=== PATIENT | male | born 1950 | race Caucasian/White ===

== ENCOUNTER → 2018-07-31 | Outpatient (CLI) | payer MEDICARE, OTHER ==
[2016-11-14 11:10] VITALS: BMI 24.9
[~2018-07-31] MED LIST: AMITRIPTYLINE PO; AZIT500T44 PO; CEFU500T10 PO; DEXL60CA6 PO; ESC10 PO; FENT1PAT12 TD; GEM600 PO; GLUC-232 PO; HCTZ25 PO; HYDR40TA PO; LAN15 PO; LOR5 PO; LOR5/325 PO; NALO25TA PO; OXYC-373 PO; PROL80 PO; PROP160C20 PO; PROTONIX; RAN150 PO; RIVA15TA PO; RIVA20TA PO; TAMS0.4C25 PO; TRAZ-133 PO; VENL75CA4 PO; metformin PO
--- NOTE | 2018-07-31 14:46 | RADIOLOGY IMAGING REPORT ---
[place] [facility] [place] NAME: Blaine Hernandes : 1950 MR: [id number] V: [id number] EXAM DATE: ORDERING PHYSICIAN: LUCAS SANCHEZ TECHNOLOGIST: Location: [facility] Patient: Blaine Hernandes : 1950 Visit/Account:[id number] Date of Sevice: 07/31/2018 EXAMINATION: Lumbar spine radiographs 3 views HISTORY: Low back pain. Fall on 07/19/2018. History of multiple back surgeries including lumbar fus ion. COMPARISON: CT of the lumbar spine from 09/18/2016. FINDINGS: AP and lateral views of the lumbar spine and a lateral view of the lumbosacral junction are obtained. Bones: There are 5 nonrib-bearing lumbar type vertebral bodies. Vertebral body heights are maintaine d. Disc spaces: Mild anterior bony spurring at a few levels. Posterior elements: There is facet hypertrophy throughout the lumbar spine. Alignment: Minimal right lateral curvature of the lumbar spine. No focal listhesis. Hardware: Posterior interbody fusion hardware at L2-3 and L5-S1 is intact and well-positioned, withou t evidence of loosening or complication. There are wires related to a spinal device partly visualize d. Soft tissues: Negative. IMPRESSION: 1. No evidence of acute fracture of the lumbar spine. 2. Multilevel facet arthropathy. 3. Posterior lumbar interbody fusion at L2-3 and L5-S1, without evidence of hardware complication. Report Dictated By: Katherin Lynn MD at 07/31/2018 2:38 PM Report E-Signed By: Katherin Lynn MD at 07/31/2018 2:41 PM WSN:[email or web address]
== END ==
LOC: RAD 09:31
PROVIDERS: ATTEND Nurse Practitioner Family
DX: M12.9 Arthropathy, unspecified (principal); M54.5 Low back pain
CPT/HCPCS: 72100

== ENCOUNTER → 2018-11-05 | Outpatient (CLI) | payer MEDICARE, OTHER ==
[2016-11-14 11:10] VITALS: BMI 24.9
--- NOTE | 2018-11-05 11:08 | RADIOLOGY IMAGING REPORT ---
FACILITY: [facility] - [place] PATIENT NAME: Blaine Hernandes : 1950 MR: [id number] V: [id number] EXAM DATE: ORDERING PHYSICIAN: LUCAS SANCHEZ TECHNOLOGIST: [place] [facility] [place]: Blaine Hernandes : 1950 Visit/Account:[id number] Date of Sevice: 11/05/2018 Technique: CHEST PA LAT HISTORY: Hypoxia Comparison studies: February 15, 2017 FINDINGS: No acute airspace consolidation. No pleural effusion. There is pulmonary hyperexpansion a s well as mild central peribronchial thickening. Cardiac silhouette is unchanged. Spinal stimulator leads are again noted. IMPRESSION: 1. No acute cardiac pulmonary process. 2. Pulmonary hyperexpansion. Report Dictated By: Jesse Bourgeois DO at 11/05/2018 11:02 AM Report E-Signed By: Jesse Bourgeois DO at 11/05/2018 11:04 AM WSN:[email or web address]
== END ==
LOC: RAD 10:24
PROVIDERS: ATTEND Nurse Practitioner Family
DX: R91.8 Other nonspecific abnormal finding of lung field (principal)
CPT/HCPCS: 71046

== ENCOUNTER 2018-12-22 06:48 | Outpatient (RCR) | payer MEDICARE, OTHER ==
[2016-11-14 11:10] VITALS: BMI 24.9
--- NOTE | 2018-12-22 12:15 | RADIOLOGY IMAGING REPORT ---
[place] [facility] [place]: Blaine Hernandes : 1950 MR: [id number] V: [id number] EXAM DATE: ORDERING PHYSICIAN: SOUMYA BENNETT TECHNOLOGIST: Location: [facility] Patient: Blaine Hernandes : 1950 Visit/Account:[id number] Date of Sevice: 12/22/2018 MR SPINE THORACIC W/O CON INDICATION: Back pain, history of AVM COMPARISON: Lumbar spine CT September 18, 2016 TECHNIQUE: Noncontrast multiplane MR imaging performed through the thoracic spine. FINDINGS: The inferior most aspect of the T12 vertebral body was not imaged on this exam. The T12-L1 disc space s not imaged on this exam. Spinal cord stimulator lead/leads in the posterior canal. Lead tips/tips have highest position at the T7-8 disc space level. Normal static alignment. Mild chronic T3 and T11 wedge compression deformities. Otherwise normal vert ebral body heights. Small benign hemangioma in the T11 vertebral body. Mild high signal in the inferior T9 endplate may r epresent mild degenerative edema, an endplate Schmorl's node or an atypical benign hemangioma. Normal cord signal. No apparent vascular malformation. Minimal T10-11 disc protrusion. No canal narrowing. T3-4 ligamentum flavum thickening. Multilevel anterior endplate spurring with preservation of disc space heights in keeping with idiopat hic skeletal hyperostosis. Mild T9-10 disc space degeneration. The visible extraspinal structures are normal. Mild bilateral T1-2 foraminal narrowing. Mild right T2-3 foraminal narrowing. Mild to moderate bilate ral T9-10 foraminal narrowing. Mild left T10-11 foraminal narrowing. The T12-L1 foramen are incomplet isai imaged on this exam. IMPRESSION: 1. Mild chronic T3 and T11 wedge compression deformities. 2. Mild T9-10 disc space degeneration. 3. Spinal stimulator lead/leads in the posterior canal as described above. 4. No canal narrowing. 5. Multilevel foraminal narrowing, see comments above. 6. The T12-L1 disc space is not imaged on this exam. The T12-L1 foramen are incompletely imaged on th is exam. Report Dictated By: Sage Pride MD at 12/22/2018 12:00 PM Report E-Signed By: Sage Pride MD at 12/22/2018 12:09 PM WSN:[email or web address]
--- NOTE | 2018-12-23 16:23 | RADIOLOGY IMAGING REPORT ---
FACILITY: [facility] - [place] PATIENT NAME: Blaine Hernandes : 1950 MR: [id number] V: [id number] EXAM DATE: ORDERING PHYSICIAN: SOUMYA BENNETT TECHNOLOGIST: Location: [facility] [place] Patient: Blaine Hernandes : 1950 Visit/Account:[id number] Date of Sevice: 12/23/2018 The patient could not have the lumbar spine MRI because of the implanted stimulator. Report Dictated By: Saqib Fernando MD at 12/23/2018 4:17 PM Report E-Signed By: Saqib Fernando MD at 12/23/2018 4:19 PM WSN:[id number]
== END 2018-12-22 18:00 | disposition home or self-care (01) ==
LOC: MRI 06:48 → EDSTATUS 12-23 06:48
PROVIDERS: ATTEND Pain Medicine Pain Medicine
DX: M54.14 Radiculopathy, thoracic region (principal)
CPT/HCPCS: 72146

== ENCOUNTER 2019-03-01 00:08 | Day surgery (SDC) | payer MEDICARE, OTHER ==
[2016-11-14 11:10] VITALS: Ht 182.9 cm; Wt 84.4 kg
[~2019-03-01] VITALS: Ht 182.9 cm; Wt 84.4 kg
[~2019-03-01 00:08] MED LIST changes: +GABA-549 PO; +HYDR-385 PO; +KRIL1CAP19 PO; +OXYC9CAP PO
[2019-03-01] MEDS ORDERED: PROPRANOLOL HCL LA 80 MG CAPCR PO SCH (09:00)
[2019-03-01 09:05] VITALS: BP 131/86
--- NOTE | 2019-03-01 09:17 | EKG ---
FACILITY: [facility] - [place] PATIENT NAME: LIZETH ACEVEDO : [id number] MR: [id number] V: [id number] EXAM DATE: ORDERING PHYSICIAN: SHOLA CEJA TECHNOLOGIST: SAEED Nix Reason : PRE-OP Blood Pressure : / mmHG Vent. Rate : 059 BPM Atrial Rate : 058 BPM P-R Int : 000 ms QRS Dur : 102 ms QT Int : 440 ms P-R-T Axes : 000 249 248 degrees QTc Int : 435 ms 60 cycle baseline interference from inplant elec. stim Right superior axis deviation Cannot rule out Anterior infarct , age undetermined ST and Marked T wave abnormality, consider inferolateral ischemia Abnormal ECG When compared with ECG of 14-NOV-2016 01:18, Significant changes have occurred Referred By: MARLIN Confirmed By:
[2019-03-01] MEDS ORDERED: MIDAZOLAM 2 MG/2 ML VIAL IVP PRN (09:20)
[2019-03-01] MEDS ORDERED: cefTRIAXone(*) 1 GM VIAL 1 GM in NS(*) 0.9% 100 ML MINI-BAG 100 ML IVPB ONE (09:20)
[2019-03-01] MEDS ORDERED: GENTAMICIN(*) 80 MG/2 ML VIAL 160 MG in NS(*) 0.9% 100 ML BAG 100 ML IVPB ONE (09:20)
[2019-03-01] MEDS ORDERED: LIDOCAINE/SOD BICARB 8.4% SYR ID ONE (09:20)
[2019-03-01] MEDS ORDERED: NORMOSOL R SOLN(*) 1000 ML BAG 1,000 ML IV PRN (09:20)
[2019-03-01] MEDS ORDERED: fentaNYL CITR 100 MCG/2 ML AMP ONE (09:58)
[2019-03-01] MEDS ORDERED: DEXAMETHASONE SOD PHOS 10MG/ML ONE (09:59)
[2019-03-01] MEDS ORDERED: PROPOFOL EMUL(*) 10MG/ML 20 ML 20 ML ONE (09:59)
[2019-03-01] MEDS ORDERED: ONDANSETRON 4 MG/2 ML VIAL ONE (09:59)
[2019-03-01] MEDS ORDERED: LIDOCAINE MPF 1% 5 ML VIAL ONE (09:59)
[2019-03-01] MEDS ORDERED: APAP/HYDROCODONE 325/5 TAB PO PRN (10:00)
[2019-03-01] MEDS ORDERED: ACET-3017 PO (12:03)
[2019-03-01] MEDS ORDERED: FAMO20TA28 PO (12:04)
[2019-03-01] MEDS ORDERED: IBUP800T37 PO (12:05)
[2019-03-01] MEDS ORDERED: LEVO-85 PO (12:06)
[2019-03-01 12:07] VITALS: BP 126/90
--- NOTE | 2019-03-01 12:08 | RADIOLOGY IMAGING REPORT ---
FACILITY: [facility] [place] PATIENT NAME: Lizeth Hernandes : 1950 MR: [id number] V: [id number] EXAM DATE: ORDERING PHYSICIAN: LIZETH ISAAC TECHNOLOGIST: Location: [facility] - [place] Patient: Lizeth Hernandes : 1950 Visit/Account:[id number] Date of Sevice: 03/01/2019 Technique: PROSTATE BIOPSY HISTORY: Prostate biopsy Comparison studies: None FINDINGS: Operative ultrasound images were obtained for prostate biopsy performed by Dr. Isaac. Plea se see procedural report for complete details. IMPRESSION: 1. Operative ultrasound images as above. Report Dictated By: Jesse Bourgeois DO at 03/01/2019 11:57 AM Report E-Signed By: Jesse Bourgeois DO at 03/01/2019 12:00 PM WSN:[email or web address]
[2019-03-01] MEDS ORDERED: ACETAMIN/CODEINE #3 300-30 MG PO ONE (12:18)
[2019-03-01 12:47] VITALS: BP 117/87
[2019-03-01 12:48] VITALS: BP 114/82
--- NOTE | 2019-03-01 13:34 | OPERATIVE REPORT 1 ---
EVENT DATE: March 01, 2019 SURGEON: Blaine Adair MD ANESTHESIOLOGIST: Pavan Stern MD ANESTHESIA: General. PREOPERATIVE DIAGNOSES 1. Elevated prostate specific antigen, etiology ? 2. Benign nodular hyperplasia. POSTOPERATIVE DIAGNOSES 1. Elevated prostate specific antigen, etiology ? 2. Benign nodular hyperplasia. 3. Calculus prostatitis. PROCEDURES PERFORMED 1. Prostate ultrasound. 2. Prostate biopsies transrectally x13. DESCRIPTION OF PROCEDURE Biopsies were obtained from the base, mid and apical areas of the prostate bilaterally transrectally. One free-end sample was obtained from the left base of the prostate and sent in a separate container. The rectal probe was removed at conclusion of the procedure. Visualization revealed minimal blood in the rectal ampulla. The patient was re- prepped and draped. The 21-Panendoscope was admitted through the urethra into the bladder. The urethra was normal. Prostate showed trilobular hyperplasia with obstruction,mostly at the median bar. Verumontanum was normal. Minimal blood in the prostatic urethra. Bladder showed 4+ trabeculation and there were several clots in the bladder that were irrigated free. Trigone and ureteral orifices were normal. No other demonstrable bladder lesions. Bladder was drained. Scope was removed. Digital examination revealed minimal blood in the rectal ampulla. Patient tolerated the procedure satisfactorily and returned to the recovery room in satisfactory condition. This is a 68-year old white male complaining of elevated PSA. His PSA in October 2018 was 6.7. Patient had 6.2 in April 2018 and 5.5 in September 2017. Options were discussed pretreatment with the patient and he was agreeable to prostate ultrasound and biopsy to evaluate for adverse etiology. That has been accomplished. See operative note for details. The patient will be discharged home on Levaquin, Pepcid, Motrin and Tylenol #3 therapy in addition to his usual medication. MTDD
== END 2019-03-01 12:07 | disposition home or self-care (01) ==
LOC: OR 00:08
DX: R97.20 Elevated prostate specific antigen [PSA] (principal); N40.0 Benign prostatic hyperplasia without lower urinary tract symptoms; N41.8 Other inflammatory diseases of prostate
CPT/HCPCS: 55700; 76942; 88305; 93005; A9270; J0696; J1100; J1580; J2001; J2405; J2704; J3010; J7050; 82310; 82374; 82435; 82565; 82947; 84132; 84295; 84520; 88344